=== PATIENT | female | born 1985 | race Caucasian/White ===

== ENCOUNTER → 2020-07-04 13:20 | Outpatient (CLI) | payer OTHER, SELFPAY ==
[2020-07-04 14:06] LABS: COVID19 -Nasal RAPID Negative (Negative)
== END ==
PROVIDERS: PCP Family Medicine; Visit Provider Obstetrics & Gynecology
DX: Z20.822 Contact with and (suspected) exposure to COVID-19 (principal)
CPT/HCPCS: 87635

== ENCOUNTER 2020-07-05 12:11 | Day surgery (SDC) | payer OTHER, SELFPAY ==
[2020-07-01 12:21] VITALS: BMI 31.2
[2020-07-05] VITALS (13 sets, daily range): BP systolic 131–177; BP diastolic 82–106; PULSE 60–81; RESP 11–20; TEMP 36.5–36.9; O2SAT 96–100; BMI 30.4
--- NOTE | 2020-07-05 | PATH_ITS ---
[facility] Accession Number: [id number] . 01 Material submitted: . uterus - UTERUS AND BILATERAL FALLOPIAN TUBES . 02 Diagnosis: Uterus and Bilateral Fallopian Tubes, Supracervical Hysterectomy and Bilateral Salpingectomy: 1. Inactive/noncycling endometrium. 2. Bilateral fallopian tubes with vascular congestion, favor procedure related. 3. Paratubal cysts. 4. No evidence of neoplasia or hyperplasia. [facility] 07/11/2020 1400 Local . 02 Electronically signed: . Radha Sandoval MD, Pathologist NPI- [id number] . 01 Gross description: . The specimen is received in formalin, labeled uterus and bilateral fallopian tubes and consists of a 57-gram morcellated uterus measuring 10.5 x 8.0 x 5.5 cm in aggregate. A cervix is not identified. The serosa is villeda-pink and smooth. Sectioning reveals a villeda-pink endometrium measuring 0.1 cm in thickness. The myometrium is villeda-pink and diffusely trabeculated with no masses or lesions identified. Also received are two detached fallopian tubes. One fallopian tube measures 7.0 cm in length by 1.0 cm in diameter and the other fragmented fallopian tube measures 8.0 cm in length by 0.8 cm in diameter. The serosa is villeda-pink and smooth with multiple paratubal cysts ranging from 0.1-0.2 cm. Sectioning reveals a villeda-pink mucosa and a stellate lumen measuring 0.3 cm in diameter. Warehouse Distribution Specialist sections are submitted. . A1-A2: lower uterine segment. A3-A4: endomyometrium. A5: myometrium. A6: intact fallopian tube, bisected fimbria and central cross-sections. A7: fragmented fallopian tube, bisected fimbria and central cross-sections. (EA:[id number]) (JL:[id number]) /MRV 07/11/2020 1113 Local . 02 Pathologist provided ICD-10: N92.0 . 02 CPT . 499855 Performed at: [facility] [address] [id number] MD Stephon Zavala MD Phone: [phone] Performed at: [address] [id number] MD Radha Sandoval MD Phone: [phone]
[2020-07-05] MEDS: ACETAMINOPHEN 325 MG TABLET 975 MG PO (12:43)
[2020-07-05] MEDS: LACTATED RINGERS 1,000 ML 100 ML IV ×2 (12:43→15:07)
--- NOTE | 2020-07-05 13:24 | PM.PREOP ---
Pre-operative Note COVID-19 COVID-19 status: Negative Result date/Date tested (Pos, Neg/Pending): 07/04/20 Interval Note History & Physical reviewed/Exam performed by Physician: Yes Changes to H&P: No
[2020-07-05] MEDS: CEFAZOLIN 2 GM/100 ML FROZ.PIGGY IV (13:30)
--- NOTE | 2020-07-05 13:58 | SUR.OPER ---
Lithotomy on padded OR bed. Goodwell Pad Positioner under torso. Head on pillow, arms padded and tucked at sides. Legs secured in padded yellow fins stirrups.
[2020-07-05] MEDS: BUPIVACAINE 0.5% W/ EPI (PF) 30 ML VIAL INJ (14:09)
[2020-07-05] MEDS: ROPIVACAINE 0.2% PF 2 MG/ML 10ML AMP 20 ML INJ (14:09)
--- NOTE | 2020-07-05 15:14 | P.OP_ITS ---
Operative Date/Time/Diagnoses Date of procedure: 07/05/20 Time of procedure: 15:14 Pre-op diagnosis: Menorrhagia and dysmenorrhea Procedure & Clinicians Procedure: Laparoscopic supracervical hysterectomy with bilateral salpingectomies Same procedure as scheduled: Yes Indications: Patient with menorrhagia and dysmenorrhea requesting hysterectomy. Surgeon: Sharri Alonzo Sales Agent Business Services: Shama Marin Click Yes if Unassisted: No Anesthesia Type: General Operative Notes Findings: Adhesions of the omentum to the anterior abdominal wall under the prior scar. Bladder scarred on the uterus. Normal tubes, ovaries, uterus. Normal bowel surface, normal liver edge, normal gallbladder dome, no obvious endometriosis Closure Type: primary Specimen(s): other (Uterus above the level the cervix and bilateral fallopian tubes) Applied: catheter (Oleary removed at the end of the case) Estimated Blood Loss (mL): 20 Blood products transfused: none Procedure in detail: Patient is brought to the operating room where she underwent general anesthesia and placed in [facility] stirps. She was prepped and draped in the usual sterile fashion. A check list was reviewed with the staff in the room prior to beginning of the case. Patient had pulsatile stockings in place and functional. 2 g of Ancef were in prior to beginning of the case.. A Oleary catheter was placed. A single-tooth tenaculum was placed on the anterior lip of the cervix and the cervix dilated to a #6 Hegar dilator. The uterine manipulator was placed through the cervix into the uterus with the balloon inflated with 3 mL of air. The area of the umbilical incision and the 5 mm right and left lower quadrant incisions were injected with Marcaine. An incision was made with scalpel. The verries needle was placed into the abdomen and confirmed in the appropriate place with withdrawal on a syringe and then free flow of fluid down through the needle. The abdomen was insufflated with CO2. The needle was removed and a 5 mm trocar placed without difficulty. There did not appear to be any damage is placement of the trocar. The right and left lower quadrant incisions were made with the scalpel and the trochars placed without damage to internal structures. The PK forceps were used to cauterize along the mesosalpinx followed by the round ligaments on both sides. The uteroovarian ligaments were cauterized and cut. Sequential bites were taken down the broad ligaments. The uterine arteries were cauterized. An incision was made above the level bladder. It was significantly adhesed to the cervix. The DEVEN loop was placed around the uterus and the uterus was amputated above the level of the bladder. Bleeding was controlled with the PK forceps. The PK forceps were used to cauterize in the endocervical canal. A supracervical incision was made and an 11 mm port placed. A 15 mm Endo Catch bag was placed in the abdomen. The uterus, tubes and ovaries were placed in the bag and brought up through the suprapubic port site. The Brendan O was placed. The uterus was hand morselized. The abdomen was reinsufflated and adequate hemostasis was noted. 10 cc of ropivacaine were placed over the cervix stump. The trochars were removed and the CO2 allowed escape from the abdomen. The fascia layer of the suprapubic site was repaired with 0 Polysorb suture. Skin was closed with 4-0 Monocryl suture at the suprapubic site and the other 3 site s. The patient went to recovery room in good condition. Counts of instruments and sponges were correct. Dr. Marin was present throughout the case to assist with holding the camera, retracting, cauterizing and cutting the structures on the left side of the patient, as well as assisting with morselization of the uterus. Complications: none Post-operative Condition: stable Disposition: observation (Patient is hoping to be discharged later today) Plan for aftercare: Home when ambulatory, tolerating a regular diet and pain under control
[2020-07-05] MEDS: fentaNYL 100 MCG/2 ML INJ IV ×2 (15:16→15:25)
[2020-07-05] MEDS: OXYCODONE IR 5 MG TABLET PO ×2 (15:30→15:50)
--- NOTE | 2020-07-05 15:51 | SUR.PHASEI ---
Pt arrived to PACU awoke soon after, medicated with fentanyl and percolone, gordo pad and bandaids have remained c/d/i.
--- NOTE | 2020-07-05 16:12 | SUR.PHASEI ---
Pt transported up to room 214. Bed down, locked and SCd's on, call jurado in reach.
[2020-07-05] MEDS: ONDANSETRON 4 MG/2 ML INJ IV (16:45)
--- NOTE | 2020-07-05 17:40 | PM.DS.1 ---
History of Present Illness History of Present Illness Date Patient Seen: 07/05/20 Time Patient Seen: 17:40 Chief complaint: LSH W/T/O UT 250 G OR LESS *OPB* Narrative: Patient is postoperative laparoscopic supracervical hysterectomy with bilateral salpingectomies. Patient is in a lot of pain and was nauseated but her nausea has resolved. Patient does not wish to stay hospitalized. She will be discharged home after she urinates and confirms that she is able to keep medicine and food down. Discharge Providers Provider Discharge Date: 07/05/20 Primary care physician: Saniya Henley MD Discharge provider: Sharri Alonzo MD Summary Hospital Course Discharge Diagnosis: Menorrhagia and dysmenorrhea Hospital Course: Patient underwent a laparoscopic supracervical hysterectomy with bilateral salpingectomies with some mild lysis of adhesions on 07/05/2020. Although patient states she is in significant pain she was asleep when I walked in the room. Patient is adamant that she wishes to go home today. Status at Discharge Cognitive/behavioral status at discharge: oriented Functional status at discharge: independent ambulation Overall status at discharge: patient is progressing back to baseline Time Spent with Patient Time spent: Less than 30 minutes Exam Vital Signs (past 8 hours): - 07/05/20 12:53 07/05/20 15:09 07/05/20 15:14 Temperature 98.5 F 97.8 F Pulse Rate 65 81 75 Respiratory Rate 14 20 16 Blood Pressure 131/89 143/96 H 139/89 Pulse Oximetry 99 96 97 07/05/20 15:19 07/05/20 15:29 07/05/20 15:46 Temperature 98 F Pulse Rate 79 81 66 Respiratory Rate 18 20 11 L Blood Pressure 134/91 H 137/88 155/89 H Pulse Oximetry 99 96 100 07/05/20 15:52 07/05/20 16:00 07/05/20 16:30 Temperature 97.9 F 97.7 F Pulse Rate 65 68 60 Respiratory Rate 16 16 18 Blood Pressure 142/89 H 141/82 H 152/105 H Pulse Oximetry 100 07/05/20 17:00 Temperature 97.7 F Pulse Rate 60 Respiratory Rate 17 Blood Pressure 162/106 H Pulse Oximetry 98 Oxygen Delivery Method Room Air Oxygen Flow Rate 0 Narrative Exam Narrative: Patient's abdomen is soft, appropriately tender. Band-Aids are clean and dry. PFSH Medical History (Updated 06/21/20 @ 21:48 by Margie Drummond) Irregular menstrual cycle Menorrhagia with irregular cycle Ovarian cyst (~2017) Painful menstrual periods PCOS (polycystic ovarian syndrome) (~2017) Surgical History (Updated 07/05/20 @ 15:11 by Sharri Alonzo MD) Anesthesia History of section Family History (Updated 06/21/20 @ 21:52 by Margie Drummond) Father Brain injury Mental health problem Mother Multiple sclerosis Ovarian cancer Brother Addiction Grandfather Stroke Grandmother Uterine cancer Grandfather Hypertension Kidney disease Grandmother Urinary tract infection Social History household members: spouse and children Smoking Status: Current every day smoker Discharge Assessment & Plan Assessment and Plan Assessment: Postoperative laparoscopic supracervical refer hysterectomy requesting discharge Plan of Treatment: Patient is discharged home to be followed up in 2 weeks. She has her Percocet and Motrin at home. Precautions reviewed with the patient. Discharge Plan Discharge Plan Patient Disposition: Home Discharge orders & Medications Discharge Orders: Discharge (Order); Ordered 07/05/20 Ordered By: Sharri Alonzo Prescriptions: Changed oxycodone-acetaminophen 5-325 mg tablet 2 tab PO Q4-6H PRN (Reason: pain) Qty: 30 RF: 0 Follow up/Referrals: Sharri Alonzo MD [Physician] - 2 Weeks Saniya Henley MD [Primary Care Provider] - Diet/Activity/Treatments Diet: Regular Activity: Do not drive within 4 hours of narcotic pain medicine. No heavy lifting or intercourse for 1 week Skin/Wound/Dressing Care Report to your healthcare provider any signs of infection, such as:: chills, fever, increased pain and unusual redness Visit Report/Discharge Packet Instructions: DI for Hysterectomy, DI for Laparoscopy Discharge Data Primary Care Provider: Saniya Henley Attending Provider: Sharri Alonzo Quality VTE Deep Vein Thrombosis/Pulmonary Embolism Present on Admission: No
--- NOTE | 2020-07-05 19:13 | PC.NURSE ---
Addendum entered by Amanda Neal R.N. 07/05/20 20:16: BP 134/98. Pt. dressed independently. IV dc'd. D/c instructions given. Pt. discharged via wheelchair to private vehicle, accompanied by mother. Original Note: Report received from MECHANIC MARINE ENGINE. Care assumed 1610. Pt A&O, VSS. Reports pain 8/10. Flat affect. No pain meds due at this time, discussed options, applied ice. Nausea reported, Zofran given with relief. Increased BP, likely due to pain, diastolic 105. Discharge orders written. Will discharge patient when she has voided, blood pressure is under control, and patient feels pain and nausea are controlled. Pt. OOB to bathroom, steady on feet. Voided. Stated pain was improved after voiding. Diastolic BP 95.
[2020-07-05] MEDS: OXYCODONE/ACETAMINOPHEN 5/325 TABLET 1 TAB PO (19:59)
== END 2020-07-05 20:10 | disposition home or self-care (01) ==
LOC: OR 12:16 → AC 12:18
PROVIDERS: PCP Family Medicine; Referring Provider Specialist; Visit Provider Specialist
PROC: 0UT94ZL Resection of Uterus, Supracervical, Percutaneous Endoscopic Approach (ICD-10-PCS; CPT 58542; principal; 2020-07-05 13:30)
DX: N83.8 Other noninflammatory disorders of ovary, fallopian tube and broad ligament (principal); Z92.0 Personal history of contraception; F17.210 Nicotine dependence, cigarettes, uncomplicated; K66.0 Peritoneal adhesions (postprocedural) (postinfection)
CPT/HCPCS: 58542; 81025; J0330; J0690; J1100; J1885; J2250; J2405; J2704; J2795; J3010